=== PATIENT | male | born 1965 | race Caucasian/White ===

== ENCOUNTER 2025-07-12 05:33 | Day surgery (SDC) | payer BC ==
[2025-07-12] MEDS ORDERED: Propofol 200 MG/20 ML SDV IV ONE (05:34)
[2025-07-12] MEDS ORDERED: Lactated Ringers 1,000 ML IV ONE (05:34)
[2025-07-12] MEDS ORDERED: Propofol 200 MG/20 ML SDV ONE (05:43)
[2025-07-12] MEDS: Lactated Ringers 1,000 ML IV SCH (06:13)
== END 2025-07-12 08:36 | disposition home or self-care (01) ==
LOC: DL.ENDO 05:33
PROVIDERS: ATTEND Internal Medicine Gastroenterology
DX: Z12.11 Encounter for screening for malignant neoplasm of colon (principal); K57.30 Diverticulosis of large intestine without perforation or abscess without bleeding; E78.5 Hyperlipidemia, unspecified
CPT/HCPCS: 45378; J7120; 00812; J2003; J2704